=== PATIENT | male | born 1995 | race African-American/Black ===

== ENCOUNTER 2022-07-03 17:15 | Emergency (ER) | payer OTHER ==
[~2022-07-03] VITALS: Ht 177.8 cm; Wt 77.1 kg
[2022-07-03 18:02] VITALS: BP 116/74
[2022-07-03] MEDS ORDERED: KETOROLAC TROMETHAMINE INJ 30 MG/ML VIAL ONE (18:43)
[2022-07-03] MEDS ORDERED: TDAP [DIPH/PERTUSSIS/TET] 0.5 ML VIAL IM ONE (18:43)
[2022-07-03] MEDS: TDAP [DIPH/PERTUSSIS/TET] 0.5 ML VIAL IM ONE (19:21)
[2022-07-03] MEDS: KETOROLAC TROMETHAMINE INJ 60 MG/2 ML VIAL IM ONE (19:22)
[2022-07-03] MEDS ORDERED: NAPR-1009 PO (20:04)
--- NOTE | 2022-07-03 20:38 | NUR ---
Patient discharged to home in stable condition. Written and verbal after care instructions given. Patient verbalizes understanding of instruction.
== END 2022-07-03 20:39 | disposition home or self-care (01) ==
LOC: ER 17:27
DX: S80.02XA Contusion of left knee, initial encounter (principal); M85.562 Aneurysmal bone cyst, left lower leg; V23.4XXA Motorcycle driver injured in collision with car, pick-up truck or van in traffic accident, initial encounter; Y93.55 Activity, bike riding; Y92.89 Other specified places as the place of occurrence of the external cause; Y99.8 Other external cause status
CPT/HCPCS: 99284; 96372; 90471; 90715; 72170; 73610; 73564; 73590; J1885

== ENCOUNTER 2022-09-07 13:49 | Emergency (ER) | payer OTHER ==
[~2022-09-07] VITALS: Ht 172.7 cm; Wt 63.5 kg
[~2022-09-07 13:49] MED LIST: NAPR-1009 PO
[2022-09-07 14:09] VITALS: BP 139/98
--- NOTE | 2022-09-07 14:25 | NUR ---
X-RAY TECH AT BEDSIDE
--- NOTE | 2022-09-07 14:30 | NUR ---
Armin diaz in [facility] - 09/07/22 at 1440 by MELANY CASTABLES WORKER AT BEDSIDE
[2022-09-07] MEDS ORDERED: IBUP-1955 PO (15:25)
[2022-09-07] MEDS ORDERED: IBUPROFEN 600 MG TABLET PO ONE (15:30)
[2022-09-07] MEDS ORDERED: IBUPROFEN 600 MG TABLET ONE ×2 (15:36→15:39)
--- NOTE | 2022-09-07 15:41 | NUR ---
Patient discharged to home in stable condition. Written and verbal after care instructions given. Patient verbalizes understanding of instruction.
== END 2022-09-07 15:49 | disposition home or self-care (01) ==
LOC: ER 14:05
DX: S66.812A Strain of other specified muscles, fascia and tendons at wrist and hand level, left hand, initial encounter (principal); S66.811A Strain of other specified muscles, fascia and tendons at wrist and hand level, right hand, initial encounter; W05.2XXA Fall from non-moving motorized mobility scooter, initial encounter; Y93.89 Activity, other specified; Y92.89 Other specified places as the place of occurrence of the external cause; Y99.8 Other external cause status
CPT/HCPCS: 99284; 29125; 73090 ×2; 73130 ×2; 73110 ×2; A6403